=== PATIENT | female | born 1990 | race African-American/Black ===

== ENCOUNTER 2018-11-07 22:24 | Emergency (ER) | payer SELFPAY ==
[~2018-11-07] VITALS: Ht 162.6 cm; Wt 57.0 kg
[2018-11-07] MEDS ORDERED: BACITRACIN ZINC OINT UDPKT TOP ONE (23:00)
[2018-11-07] MEDS ORDERED: LIDOCAINE HCL/PF 1% 10 MG/ML 5ML VIAL IJ ONE (23:00)
[2018-11-08] MEDS ORDERED: KETOROLAC 15MG/ML VIAL IM ONE (05:15)
[2018-11-08 05:37] VITALS: BP 109/61
== END 2018-11-08 05:38 | disposition home or self-care (01) ==
LOC: ER 22:24
DX: S01.81XA Laceration without foreign body of other part of head, initial encounter (principal); S00.511A Abrasion of lip, initial encounter; Y08.89XA Assault by other specified means, initial encounter; Y93.89 Activity, other specified; Y92.89 Other specified places as the place of occurrence of the external cause; Y99.8 Other external cause status
CPT/HCPCS: 70450; 72125; 99284; J3490; Z7610

== ENCOUNTER 2018-11-15 14:03 | Emergency (ER) | payer MEDICAID ==
[~2018-11-15] VITALS: Ht 167.6 cm; Wt 57.0 kg
[2018-11-15 14:55] VITALS: BP 112/66
== END 2018-11-15 15:01 | disposition home or self-care (01) ==
LOC: ER 14:19
DX: S01.81XD Laceration without foreign body of other part of head, subsequent encounter (principal); X58.XXXD Exposure to other specified factors, subsequent encounter
CPT/HCPCS: 99282

== ENCOUNTER 2018-12-26 19:22 | Observation (INO) | payer SELFPAY ==
[~2018-12-26] VITALS: Ht 167.6 cm; Wt 63.5 kg
[2018-12-26] MEDS ORDERED: AZITHROMYCIN 500 MG TABLET PO SCH (21:30)
== END 2018-12-26 22:50 | disposition home or self-care (01) ==
LOC: ER 20:44 → INTOOBSV 20:47 → 8 EST LDRP 20:47
PROVIDERS: ADMIT Obstetrics & Gynecology; ATTEND Obstetrics & Gynecology
DX: O26.892 Other specified pregnancy related conditions, second trimester (principal); N89.8 Other specified noninflammatory disorders of vagina; Z3A.25 25 weeks gestation of pregnancy
CPT/HCPCS: 76805; 99281; G0378; 99285

== ENCOUNTER 2020-01-21 16:32 | Inpatient (IN) | payer MEDICAID, OTHER ==
[~2020-01-21] VITALS: Ht 167.6 cm; Wt 46.3 kg
[2020-01-21 17:50] LABS: EOSINOPHILS % 2.3 % (0.0-5.0); HEMATOCRIT. 32.4 % (36.0-48.0); HEMOGLOBIN. 10.7 g/dL (12.0-16.0); LYMPHOCYTES % 34.3 % (20.0-50.0); MEAN CORPUSCULAR HEMOGLOBIN 28.3 pg (28.0-32.0); MEAN CORPUSCULAR VOLUME 85.4 fL (81.0-99.0); MONOCYTES % 11.8 % (2.0-8.0); NEUTROPHILS % 50.6 % (40.0-76.0); PLATELET 320 x1000/uL (130-400); RED BLOOD CELL COUNT 3.79 mill/uL (4.2-5.4); RED CELL DISTRIBUTION WIDTH 14.9 % (11.6-14.6)
[2020-01-21 17:51] LABS: CLARITY URINE CLOUDY (CLEAR); COLOR URINE DARK YELLOW (YELLOW); KETONES URINE TRACE (NEGATIVE); LEUKOCYTE ESTERASE URINE NEGATIVE (NEGATIVE); NITRITE URINE NEGATIVE (NEGATIVE); OCCULT BLOOD URINE 3+ (NEGATIVE); PROTEIN URINE 1+ (NEGATIVE); SPECIFIC GRAVITY URINE 1.036 (1.005-1.030)
[2020-01-21 17:57] LABS: CHLORIDE 107 mEq/L (98-107)
[2020-01-21 18:03] LABS: INR 1.1; PROTHROMBIN TIME 11.2 sec (9.6-11.0)
[2020-01-21 18:56] LABS: HCG SCREEN POSITIVE
[2020-01-21] MEDS ORDERED: FENTANYL CITRATE/PF 50MCG/ML 2ML VIAL ONE (21:04)
[2020-01-21] MEDS ORDERED: LIDOCAINE HCL/PF 1% 10 MG/ML 5ML VIAL ONE (21:05)
[2020-01-21] MEDS ORDERED: MIDAZOLAM HCL 2 MG/2 ML VIAL ONE (21:05)
[2020-01-21] MEDS ORDERED: PROPOFOL 200MG/20ML VIAL IV ONE (21:05)
[2020-01-21] MEDS ORDERED: SUCCINYLCHOLINE CHLORIDE 200MG/10ML IV ONE (21:06)
[2020-01-21] MEDS ORDERED: ROCURONIUM BROMIDE 10MG/ML VIAL 5ML IV ONE (21:06)
[2020-01-21] MEDS ORDERED: CEFAZOLIN SODIUM 1000MG/VIAL ONE (21:25)
[2020-01-21] MEDS ORDERED: DEXAMETHASONE 4MG/ML 1ML VIAL ONE (21:29)
[2020-01-21] MEDS ORDERED: ONDANSETRON HCL 4MG/2ML INJ ONE (21:29)
[2020-01-21] MEDS ORDERED: BUPIVACAINE HCL 0.5% (5MG/ML) 50ML ONE (21:48)
[2020-01-21] MEDS ORDERED: SKIN ADHESIVE 0.7 GM EA TOP ONE (22:12)
[2020-01-21] MEDS ORDERED: KETOROLAC 60MG/2ML VIAL IM NR (22:53)
[2020-01-21] MEDS ORDERED: HYDROMORPHONE HCL/PF 2MG/ML CPJ IV PRN (23:00)
[2020-01-21] MEDS ORDERED: ONDANSETRON HCL 4MG/2ML INJ IV PRN (23:00)
[2020-01-21] MEDS ORDERED: KETOROLAC 30MG/ML VIAL IM ONE (23:30)
[2020-01-21] MEDS ORDERED: DEXT 5%/0.45% NACL KCL 20MEQ/L 1,000 ML IV SCH (23:30)
[2020-01-22 01:00] VITALS: BP 111/54
[2020-01-22] MEDS: HYDROCODONE/ACETAMINOPHEN 5/325MG TABLET PO PRN ×3 (01:48→14:00)
[2020-01-22 04:00] VITALS: BP 103/56
[2020-01-22] MEDS ORDERED: IBUP-2029 MT (05:38)
[2020-01-22] MEDS ORDERED: FERR325T6 MT (05:38)
[2020-01-22] MEDS ORDERED: KETOROLAC 30MG/ML VIAL IV PRN (05:45)
[2020-01-22 05:46] LABS: BASOPHILS % 0.3 % (0.0-2.0); HEMATOCRIT. 28.3 % (36.0-48.0); HEMOGLOBIN. 9.3 g/dL (12.0-16.0); LYMPHOCYTES % 11.1 % (20.0-50.0); MEAN CORPUSCULAR HEMOGLOBIN 27.8 pg (28.0-32.0); MEAN CORPUSCULAR VOLUME 84.4 fL (81.0-99.0); MEAN PLATELET VOLUME 8.8 fl (7.4-10.4); MONOCYTES % 3.4 % (2.0-8.0); NEUTROPHILS % 85.2 % (40.0-76.0); PLATELET 283 x1000/uL (130-400); RED BLOOD CELL COUNT 3.35 mill/uL (4.2-5.4); RED CELL DISTRIBUTION WIDTH 14.7 % (11.6-14.6)
[2020-01-22 08:06] VITALS: BP 95/42
[2020-01-22] MEDS ORDERED: FAMOTIDINE 20MG/2ML VIAL IV SCH (09:00)
[2020-01-22 12:13] VITALS: BP 109/64
[2020-01-22] MEDS ORDERED: DEXT 5%/0.45% NACL KCL 20MEQ/L 1,000 ML IV SCH (15:00)
[2020-01-22 16:08] VITALS: BP 110/53
[2020-01-22 16:23] VITALS: BP 109/64
== END 2020-01-22 16:56 | disposition home or self-care (01) | DRG 545 ==
LOC: ER 16:32 → 6WST 19:26 → ENRESERV 20:49
PROVIDERS: ADMIT Specialist; ATTEND Specialist
PROC: 0UB54ZZ Excision of Right Fallopian Tube, Percutaneous Endoscopic Approach (ICD-10-PCS; principal; 2020-01-21)
DX: O00.90 Unspecified ectopic pregnancy without intrauterine pregnancy (principal); O99.321 Drug use complicating pregnancy, first trimester; D64.9 Anemia, unspecified; F17.210 Nicotine dependence, cigarettes, uncomplicated; O99.331 Smoking (tobacco) complicating pregnancy, first trimester; F15.10 Other stimulant abuse, uncomplicated; O99.011 Anemia complicating pregnancy, first trimester; Z3A.01 Less than 8 weeks gestation of pregnancy
CPT/HCPCS: 36415; 73706; 76801; 80053; 81003; 84702; 84703; 85025; 86850; 86900; 88302; 96372; 99285; J0330; J0690; J1100; J1885; J2250; J2405; J2704; J3010; J3490

== ENCOUNTER 2024-08-03 13:12 | Emergency (ER) | payer MEDICAID ==
[~2024-08-03] VITALS: Ht 167.6 cm; Wt 56.6 kg
[~2024-08-03 13:12] MED LIST: FERR325T6 MT; IBUP-2029 MT
[2024-08-03 14:27] VITALS: BP 126/72; PULSE 108; RESP 16; TEMP 98.2; O2SAT 94
== END 2024-08-03 19:45 | disposition left against medical advice (07) ==
LOC: ER 13:12
DX: Z76.0 Encounter for issue of repeat prescription (principal); Z53.21 Procedure and treatment not carried out due to patient leaving prior to being seen by health care provider